=== PATIENT | female | born 1990 | race Caucasian/White ===

== ENCOUNTER 2019-01-20 01:45 | Day surgery (SDC) | payer OTHER ==
[2019-01-20 02:28] VITALS: BMI 28.0
[2019-01-20] MEDS ORDERED: hydrALAZINE 20 MG/ML VIAL SLOW IVP PRN (03:35)
--- NOTE | 2019-01-20 03:40 | PDOC.LDHP ---
Labor and Delivery H&P Chief complaint: other (vaginal bleeding) HPI: 28 yo G1 at 33 wks here for vaginal bleeding. Started with abd cramping about 24 hours ago. Earlier today passed black/red mucous clot. Abd cramping has been intermittent all day, worse with standing/walking. Went home, placed pad and passed another similar appearing clot enough to fill up half a tampon. Patient denies VD/LOF. Did take sudafed & tylenol cold yesterday morning. Tylenol cold is a new medication but sudafed she has been taking for a few weeks since feeling under the weather. 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 No dysuria or hematuria. Current gestational age (weeks): 33 (33.0) Due date: 03/10/19 Grav: 1 Para: 0 OB History Details: No issues during this so far Current complications: none Current medications: pre-radha vitamins, other (prilosec, flovent, singulair, claritin, tylenol cold/flu, sudafed) Previous surgical history: appendectomy, cholecystectomy, other (ovarian cyst surgery) Allergies/Adverse Reactions: Allergies Allergy/AdvReac Type Severity Reaction Status Date / Time epinephrine Allergy Severe Verified 01/20/19 02:30 Penicillins Allergy Severe Anaphylaxis Verified 01/20/19 02:15 bacitracin Allergy Intermediate Hives Verified 01/20/19 02:15 [From Neosporin ([id number])] neomycin Allergy Intermediate Hives Verified 01/20/19 02:15 [From Neosporin ([id number])] polymyxin B Allergy Intermediate Hives Verified 01/20/19 02:15 [From Neosporin ([id number])] Latex, Natural Rubber Allergy Mild Hives Verified 01/20/19 02:15 Social history: none - Physical Exam Vital signs reviewed and normal: yes General: NAD, resting Lungs: nonlabored breathing Abdomen: NTTP (gravid, no point tenderness) Extremeties: no edema FHT: category 1 - OB Labs Blood type: unknown RH: unknown Antibody Screen: unknown HIV: unknown RPR: unknown HEPSAg: unknown 1 hour GCT: unknown GBS: unknown - Plan Plan: observation in L&D -: Vaginal bleeding in -FHT: Cat 1 (reactive, reassuring), no CTX -Transabdominal U/S -assess for placental location and cervical length -Continuous monitoring -Sterile spec exam: -FFN, VP3, UA, GCC IUP -see above -will rule out signs of labor
--- NOTE | 2019-01-20 04:34 | PDOC.FPROB ---
FMR OB H&P: HPI - History of Present Illness Chief Complaint: vaginal bleeding Indentification: 28 yo G1 at 33.0 weeks History of Present Illness: 28 yo G1 at 33 wks here for vaginal bleeding. Started with abd cramping about 24 hours ago. Earlier today passed black/red mucous clot. Abd cramping has been intermittent all day, worse with standing/walking. Went home, placed pad and passed another similar appearing clot enough to fill up half a tampon. Patient denies VD/LOF. Did take sudafed & tylenol cold yesterday morning. Tylenol cold is a new medication but sudafed she has been taking for a few weeks since feeling under the weather. 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 No dysuria or hematuria. Primary Care Physician: Dr. Ruiz FMR OB H&P: Current - Care : 1 Para: 0 Gestational age: 33 Due date: 03/10/19 - OB Labs Blood type: unknown RH: unknown Antibody Screen: unknown HIV: unknown RPR: unknown HepBsAg: unknown Quad screen: unknown Urine drug screen: not done Gonorrhea: unknown Chlamydia: unknown GBS: unknown FMR OB H&P: History - Past Medical History PMH: Allergy induced asthma Seasonal allergies Hx of Guillain [place] Syndrome - OB History OB History: No known history - Surgical History Sx History: Appendectomy Cholecystectomy - Social History Social History: Denies TAD - Family History Family History: N/C FMR OB H&P: Medications - Current Home Medications: Medication Instructions Recorded Confirmed Type Fluticasone Propionate [Flovent 44 mcg INH BID 01/20/19 01/20/19 History HFA] Loratadine [Claritin] 10 mg PO DAILY 01/20/19 01/20/19 History Montelukast Sodium [Singulair] 10 mg PO DAILY 01/20/19 01/20/19 History Omeprazole Magnesium [Prilosec] 10 mg PO 01/20/19 History PHENYLephrine/DM/Acetaminop/GG 1 each PO 01/20/19 History [Tylenol Cold-Flu Severe Caplet] Pnv No.121/Iron/Folic Acid 1 each PO 01/20/19 History [ Multivitamin Tablet] Pseudoephedrine HCl [Sudafed 240 mg PO DAILY 01/20/19 01/20/19 History 24-Hour] metroNIDAZOLE [Flagyl] 500 mg PO BID #14 tab 01/20/19 Rx Allergies/Adverse Reactions: Allergies Allergy/AdvReac Type Severity Reaction Status Date / Time epinephrine Allergy Severe Verified 01/20/19 02:30 Penicillins Allergy Severe Anaphylaxis Verified 01/20/19 02:15 bacitracin Allergy Intermediate Hives Verified 01/20/19 02:15 [From Neosporin ([id number])] neomycin Allergy Intermediate Hives Verified 01/20/19 02:15 [From Neosporin ([id number])] polymyxin B Allergy Intermediate Hives Verified 01/20/19 02:15 [From Neosporin ([id number])] Latex, Natural Rubber Allergy Mild Hives Verified 01/20/19 02:15 FMR OB H&P: ROS - Review of Systems General: denies: fever/chills, weight/appetite/sleep changes Eyes: denies: vision changes, double vision ENT: reports: nasal congestion. denies: sinus pain/pressure, ear pain Cardiovascular: denies: chest pain, palpitation Respiratory: reports: congestion. denies: cough, shortness of breath Genitourinary (Female): reports: vaginal discharge, vaginal bleeding, contractions. denies: incontinence, dysuria, hematuria, vaginal pressure Musculoskeletal: denies: pain, stiffness Neurologic: denies: numbness, syncope, seizures Integumentary: denies: rash, lesions Endocrine: denies: cold intolerance, heat intolerance Hematologic/Lymphatic: denies: prolonged or excessive bleeding, enlarged lymph nodes Psychological: denies: depression, anxiety FMR OB H&P: Vital Signs - Heart Tones Baseline: 140 Variability: moderate Acceleration: present Deceleration: absent Category: category 1 FMR OB H&P: Physical Exam - Physical Exam General: NAD, awake, alert and oriented HEENT: normocephalic and atraumatic, PERRLA, EOMI, MMM Neck: supple, FROM Chest: non-tender to palpation, no lesions Heart: RRR, normal S1/S2, pulses present General: no respiratory distress, good air movement Abdomen: soft, gravid, non-tender Skin: capillary refill <2 seconds Lymphatic: no unusual bruising or bleeding, no purpura - Pelvic Exam Vulva: normal hair distribution Deviation from normal: no vaginal lacerations/ cervix bled with cutip pressure SVE: cl/th/h FMR OB H&P: A/P - Problem List (1) Status: Acute (2) Vaginal bleeding during Status: Acute Code(s): O46.90 - ANTEPARTUM HEMORRHAGE, UNSPECIFIED, UNSPECIFIED TRIMESTER Disposition: Vaginal bleeding in -FHT: Cat 1 (reactive, reassuring), no CTX -Source of bleeding likely from cervix, white thick discharge-yeast vs. bacterial -Sent for VP3, flagyl and OTC monostat 7 -cervix: cl/th/high -pt reports prior u/s placenta anterior, has not been told that placenta low lying/needs to abstain from intercourse IUP -see above -continue care with Dr. Ruiz Discussion: Date/Time: 01/20/19 3310 This H&P was discussed with [] and [] who agree with the above documentation and plan. Addendum - Attending - Attending Attestation Date/Time: 01/20/19 [id number] I personally evaluated the patient and discussed the management with Dr. Vieyra I agree with the History, Examination, Assessment and Plan documented above with any addition or exceptions noted below. speculum exam- vaginal discharge present adherent to cervix and vaginal wall. white. cervix friable and bleeding with light q-tip touch. vp3 pending. pt has h/o recurrent yeast infections. counselled to start otc anti yeast prep. metronidazole sent in. pt to call in the morning for vp3 results. PT sent home with reassurance. fetus cat 1
--- NOTE | 2019-01-20 04:49 | PDOC.BPN ---
- Brief Progress Note Discussed exam results from patient and likely bleeding is from cervix. May continue to experience some spotting. Cervix friability could be from infection in which VP3 was sent or from . Baby FHT is reactive and reassuring. Patient with closed cervix. Sent in flagyl and will call with results. Advised to use OTC Monostat 7 for presumed yeast infection based on clinical exam findings & hx of 2 yeast infections in . F/u with Dr. Ruiz this week. Answered all questions.
== END 2019-01-20 04:41 | disposition home or self-care (01) ==
LOC: L&D/OP 01:45
PROVIDERS: ATTEND Obstetrics & Gynecology
DX: O46.93 Antepartum hemorrhage, unspecified, third trimester (principal); O99.513 Diseases of the respiratory system complicating pregnancy, third trimester; J45.909 Unspecified asthma, uncomplicated; Z3A.33 33 weeks gestation of pregnancy; Z79.899 Other long term (current) drug therapy; Z88.0 Allergy status to penicillin; Z88.1 Allergy status to other antibiotic agents; Z88.8 Allergy status to other drugs, medicaments and biological substances; Z91.041 Radiographic dye allergy status
CPT/HCPCS: 87480; 87510; 87660; 99284

== ENCOUNTER 2019-03-10 18:00 | Inpatient (IN) | payer OTHER ==
[2019-03-11 09:13] VITALS: BMI 30.7
[2019-03-11] MEDS ORDERED: HYDROcodone/Acetaminophen 5/325 mg Tablet PO PRN ×2 (09:24)
[2019-03-11] MEDS ORDERED: Misoprostol 100 MCG TAB VAG SCH (09:24)
[2019-03-11] MEDS ORDERED: Zolpidem Tartrate 5 MG TAB PO PRN ×2 (09:24→20:37)
[2019-03-11] MEDS ORDERED: NS / Oxytocin 40 units/1000ml 1,000 ML IV PRN (09:24)
[2019-03-11] MEDS ORDERED: Butorphanol Tartrate 1 MG/ML VIAL SLOW IVP PRN (09:24)
[2019-03-11] MEDS ORDERED: hydrALAZINE 20 MG/ML VIAL SLOW IVP PRN ×2 (09:24→20:37)
[2019-03-11] MEDS ORDERED: NS w/ Oxytocin 10 units 500 ML IV SCH ×2 (09:24)
[2019-03-11] MEDS ORDERED: Acetaminophen 500 MG TAB PO PRN (09:24)
[2019-03-11] MEDS ORDERED: Lactated Ringer's 1,000 ML IV SCH (09:24)
[2019-03-11] MEDS ORDERED: Ondansetron PF 4 MG/2 ML Vial IVP PRN ×3 (09:24→20:37)
[2019-03-11] MEDS ORDERED: Diphenoxylate HCl/Atropine Tablet PO PRN ×2 (09:24)
[2019-03-11] MEDS ORDERED: Misoprostol 200 MCG TAB PR PRN ×2 (09:24→20:37)
[2019-03-11] MEDS ORDERED: Ibuprofen 800 MG TAB PO PRN (09:24)
[2019-03-11] MEDS ORDERED: Docusate 100 MG CAP PO PRN (09:24)
[2019-03-11] MEDS ORDERED: Lidocaine 1% (PF) 30 ML VIAL SC PRN (09:24)
[2019-03-11] MEDS ORDERED: Promethazine HCl 25 MG/ML VIAL IM PRN ×2 (09:24→19:54)
[2019-03-11 09:52] LABS: Hemoglobin 12.4 g/dL (12.0-16.0); Mean Corpuscular HGB CONC 33.8 g/dL (32.0-36.0); Mean Corpuscular Hemoglobin 31.2 pg (27.0-31.0); Mean Corpuscular Volume 92.2 fL (78.0-98.0); Mean Platelet Volume 8.6 fL (7.4-10.4); Platelet Count 288 thou/uL (130-400); RBC Distribution Width 12.8 % (11.5-14.5); Red Blood Cell (RBC) Count 3.98 mill/uL (4.20-5.40); White Blood Cell (WBC) Count 15.4 thou/uL (4.8-10.8)
[2019-03-11 10:24] LABS: Syphilis Antibody Nonreactive (Nonreactive); Syphilis Antibody Index 0.03 S/CO (<1.00 Non-Reactive)
[2019-03-11 10:25] LABS: HBSAg Index 0.22 S/CO (0-0.99); Hep B Surf Ag Non-Reactive S/CO (NonReactive)
[2019-03-11] MEDS ORDERED: CEFAZOLIN 2 GM in Premix Bag 1 BAG IVPB SCH (15:45)
[2019-03-11] MEDS ORDERED: Bicitra 30 ML UDCUP PO SCH (15:45)
[2019-03-11] MEDS ORDERED: MORPHINE 5 MG/10 ML PF VIAL ONE (18:25)
[2019-03-11] MEDS ORDERED: ePHEDrine/0.9% NaCl/PF SYRINGE 50 mg/10 ml ONE (18:43)
[2019-03-11] MEDS ORDERED: Ondansetron PF 4 MG/2 ML Vial ONE (19:07)
[2019-03-11] MEDS ORDERED: Oxytocin 10 UNITS/ML VIAL ONE (19:14)
[2019-03-11] MEDS ORDERED: Promethazine HCl 25 MG SUPP PR PRN (19:54)
[2019-03-11] MEDS ORDERED: Naloxone HCl 0.4 mg/ml Vial IVP PRN ×2 (19:54)
[2019-03-11] MEDS ORDERED: Naloxone HCl 0.4 mg/ml Vial IV PRN (19:54)
[2019-03-11] MEDS ORDERED: Communication Order-Pharmacy FS SCH (20:00)
[2019-03-11] MEDS ORDERED: Bisacodyl 10 MG SUPP PR PRN (20:37)
[2019-03-11] MEDS ORDERED: Meperidine HCl/PF 25 MG/ML VIAL IM PRN (20:37)
[2019-03-11] MEDS ORDERED: diphenhydrAMINE 25 MG CAP PO PRN (20:37)
[2019-03-11] MEDS ORDERED: Acetaminophen 325 MG TAB PO PRN (20:37)
[2019-03-11] MEDS ORDERED: Lanolin Ointment 7 GM TUBE TOP PRN (20:37)
[2019-03-11] MEDS ORDERED: NS / Oxytocin 40 units/1000ml 1,000 ML IV SCH (21:00)
[2019-03-11] MEDS ORDERED: Ketorolac Tromethamine 30 MG/ML VIAL ONE (21:08)
[2019-03-11] MEDS: Ketorolac Tromethamine 30 MG/ML VIAL IVP PRN (21:15)
[2019-03-11] MEDS ORDERED: Ferrous Sulfate 325 MG TAB PO SCH (21:30)
[2019-03-11] MEDS: diphenhydrAMINE 50 MG/ML VIAL IVP PRN (22:37)
[2019-03-11] MEDS: CEFAZOLIN 1 GM in Sodium Chloride 0.9% 100 ML IVPB SCH ×2 (23:18→23:19)
[2019-03-11] MEDS: Docusate Calcium (SURFAK) 240 MG CAP PO SCH (23:18)
--- NOTE | 2019-03-12 01:37 | OP ---
DATE OF PROCEDURE: 03/11/2019 RESIDENT SURGEON: Lakeisha Cheatham D.O. PREOPERATIVE DIAGNOSIS: Term intrauterine at 40-1/7 weeks, footling breech presentation. POSTOPERATIVE DIAGNOSIS: Term intrauterine at 40-1/7 weeks, footling breech presentation. PROCEDURE: Primary low transverse section. ANESTHESIA: Spinal catheterization. FINDINGS: 1. Footling breech presentation at the time of presenting for induction of labor. 2. Breech confirmed with ultrasound. 3. Internal version of breech to vertex during . 4. Male infant, 7 pounds 14 ounces, Apgars four and nine. 5. Normal uterus, tubes, and ovaries. COMPLICATIONS: None. SPECIMENS REMOVED: Cord blood. BLOOD LOSS: Approximately 600 mL. INDICATIONS: Mrs. Macrina Sánchez is a very pleasant 28-year-old white female, one, para 0, who is following my clinic for obstetric care. Macrina was scheduled for induction on the evening of 03/10/2019. Her induction was postponed. She presented this morning and the nurses reported difficult time finding the heart tones. Dr. Steve Moreland, who was the laborist on-call, evaluated the patient for cardiac activity and baby was noted to be in footling breech presentation. I confirmed breech presentation later on that day. In addition to footling breech, the patient was noted to have an JUDIE of approximately 6 cm and a grade 3 placenta. For these reasons, decision was made to proceed with primary low transverse section this evening. The patient has been thoroughly counseled and consented. Her surgical disclosures have been signed and placed in the chart. She and her have been given the opportunity to ask any questions and concerns and these were answered to their satisfaction. DESCRIPTION OF PROCEDURE: After thorough consent and counseling, the patient was taken to the operating room and an adequate level of anesthesia was obtained via spinal catheterization. The patient was prepped and draped in sterile fashion for abdominal surgery. A Drummond was placed in the bladder which was noted to be draining clear urine. A team time-out was performed per protocol. Attention was then turned to performing the primary low-transverse section. A Pfannenstiel incision was made through the old scar, which was carried sharply to the fascia and also sharply incised. The midline was identified. The rectus muscles were retracted laterally. The abdominal peritoneal cavity was entered and the usual safeguard carried out. A retractor was placed and a bladder flap was created on the vesicouterine peritoneum. A bladder blade was then placed. A low-transverse incision was made on the well-developed lower uterine segment. Upon entering the amniotic sac, scant amount of clear amniotic fluid was visualized. The was noted to be in footling breech presentation. Internal cephalic version was performed and the vertex was carefully advanced into the pelvis. Head was carefully delivered in an atraumatic fashion. Nuchal cord x1 was reduced. Shoulders and body were then delivered in an atraumatic fashion. Baby was bulb suctioned on the abdomen. The cord was doubly clamped and cut. The was handed to the pediatric team in attendance for the delivery. The infant was a viable male weighing 7 pounds 14 ounces with Apgars of four and nine obtained at 1 and 5 minutes respectively. Cord blood was obtained. The placenta was manually removed from the uterus. The uterus was exteriorized and good tone was noted. The uterine cavity was cleared of remaining clot and fluid. The low-transverse incision was then closed with a running locking ligature of #1 chromic. Several [id number] ligatures of #1 chromic were placed to facilitate strength and hemostasis. The vesicouterine peritoneum was reapproximated to the lower segment with running ligature of 3-0 Monocryl suture. Good tone and hemostasis were appreciated. The posterior cul-de-sac gutters were cleared of clot and fluid. The uterus, fallopian tubes, and ovaries were carefully inspected and noted to be normal. Seprafilm was applied to the low-transverse incision and to the anterior aspect of the uterus for adhesion prevention. The uterus was returned to the abdomen and good tone and hemostasis were once again appreciated. Lap, sponge, and needle counts were correct. The peritoneum was closed with a running ligature of 2-0 Vicryl suture. The rectus muscles were reapproximated in the midline with interrupted ligatures of 2-0 Vicryl and #1 chromic suture. The fascia was then closed with two ligatures of 0 Vicryl suture which was tied in the midline. Good fascial integrity was appreciated. The incision was irrigated with copious amount of warm normal saline. The subcutaneous tissue was closed with interrupted ligatures of 2-0 plain. The skin was then closed with a subcuticular stitch of 4-0 Monocryl and dressed with Dermabond. A pressure dressing and ice packs were subsequently placed. Lap, sponge, and needle counts were correct x3. Estimated blood loss in the surgical procedure was approximately 600 mL. The patient was taken to the recovery room in good condition. Immediately following surgery, the patient and family were made aware of the surgical procedure and operative findings. Questions were answered to their satisfaction. Job ID: [id number]
[2019-03-12] MEDS: diphenhydrAMINE 50 MG/ML VIAL IVP PRN (04:23)
[2019-03-12] MEDS: Ketorolac Tromethamine 30 MG/ML VIAL IVP PRN (04:23)
[2019-03-12 05:56] LABS: Hemoglobin 10.8 g/dL (12.0-16.0); Mean Corpuscular HGB CONC 34.1 g/dL (32.0-36.0); Mean Corpuscular Hemoglobin 31.5 pg (27.0-31.0); Mean Corpuscular Volume 92.4 fL (78.0-98.0); Mean Platelet Volume 7.2 fL (7.4-10.4); Platelet Count 248 thou/uL (130-400); RBC Distribution Width 12.7 % (11.5-14.5); Red Blood Cell (RBC) Count 3.43 mill/uL (4.20-5.40); White Blood Cell (WBC) Count 16.3 thou/uL (4.8-10.8)
[2019-03-12] MEDS: Ferrous Sulfate 325 MG TAB PO SCH ×2 (07:34→16:33)
[2019-03-12] MEDS: CEFAZOLIN 1 GM in Sodium Chloride 0.9% 100 ML IVPB SCH ×3 (07:42→09:25)
[2019-03-12] MEDS ORDERED: Meperidine HCl/PF 25 MG/ML VIAL IM PRN (08:00)
[2019-03-12] MEDS ORDERED: Butorphanol Tartrate 1 MG/ML VIAL SLOW IVP PRN (08:00)
[2019-03-12] MEDS ORDERED: Zolpidem Tartrate 5 MG TAB PO PRN (08:00)
[2019-03-12] MEDS: Prenatal Vitamin 1 TAB PO SCH (08:29)
[2019-03-12] MEDS: Docusate Calcium (SURFAK) 240 MG CAP PO SCH ×2 (08:30→21:09)
[2019-03-12] MEDS: Simethicone Chewable 80 MG TAB PO PRN ×2 (08:34→21:10)
[2019-03-12] MEDS ORDERED: FLU VACC QS2019-20(6MOS UP)/PF 60 MCG/0.5 ML SYRINGE IM ONE (09:00)
[2019-03-12] MEDS ORDERED: Adacel (T-DAP) 0.5 ML SYRINGE IM ONE (09:00)
[2019-03-12] MEDS: HYDROcodone/Acetaminophen 5/325 mg Tablet PO PRN ×2 (12:23→20:22)
[2019-03-12] MEDS: Ibuprofen 800 MG TAB PO SCH ×2 (14:18→21:10)
[2019-03-13] MEDS: HYDROcodone/Acetaminophen 5/325 mg Tablet PO PRN ×6 (00:25→23:46)
[2019-03-13] MEDS: Simethicone Chewable 80 MG TAB PO PRN ×5 (00:26→23:46)
[2019-03-13] MEDS: Ibuprofen 800 MG TAB PO SCH ×3 (04:45→23:46)
[2019-03-13] MEDS ORDERED: Ibuprofen 800 MG TAB PO SCH (06:00)
[2019-03-13] MEDS: Ferrous Sulfate 325 MG TAB PO SCH ×2 (07:35→15:16)
[2019-03-13] MEDS: Docusate Calcium (SURFAK) 240 MG CAP PO SCH ×2 (09:06→23:46)
[2019-03-13] MEDS: Prenatal Vitamin 1 TAB PO SCH (09:06)
[2019-03-14] MEDS: HYDROcodone/Acetaminophen 5/325 mg Tablet PO PRN ×3 (05:29→14:31)
[2019-03-14] MEDS: Ferrous Sulfate 325 MG TAB PO SCH (08:05)
[2019-03-14 08:14] VITALS: BP 99/55; TEMP 98.1
[2019-03-14] MEDS: Prenatal Vitamin 1 TAB PO SCH (08:41)
[2019-03-14] MEDS: Ibuprofen 800 MG TAB PO SCH ×2 (08:41→14:32)
[2019-03-14] MEDS: Simethicone Chewable 80 MG TAB PO PRN (08:41)
[2019-03-14] MEDS: Docusate Calcium (SURFAK) 240 MG CAP PO SCH (08:41)
== END 2019-03-14 15:20 | disposition home or self-care (01) | DRG 788 ==
LOC: L&D 03-11 08:41 → 3SW 03-11 22:06
PROVIDERS: ADMIT Obstetrics & Gynecology; ATTEND Obstetrics & Gynecology
PROC: 10D00Z1 Extraction of Products of Conception, Low, Open Approach (ICD-10-PCS; principal; 2019-03-11)
DX: O32.8XX0 Maternal care for other malpresentation of fetus, not applicable or unspecified (principal); Z3A.40 40 weeks gestation of pregnancy; Z37.0 Single live birth; O69.81X0 Labor and delivery complicated by cord around neck, without compression, not applicable or unspecified
CPT/HCPCS: 36415; 51702; 85027; 86780; 86850; 86870; 86900; 86901; 87340; J0690; J1200; J1885; J2274; J2310; J2405; J2590; Q0163